=== PATIENT | male | born 1945 | race Caucasian/White ===

== ENCOUNTER 2016-09-23 11:43 | Observation (INO) ==
--- NOTE | 2016-09-23 11:55 | Emergency Department Note ---
Disposition Clinical Impression: Influenza, Dyspnea Disposition: Admitted As Inpatient Condition: Good General Adult HPI - General Chief complaint: ED Upper Respiratory Infection Stated complaint: Fever Cough Time Seen by Provider: 09/23/16 11:51 Source: patient, family Limitations: no limitations - History of Present Illness Pain Scale: 0 - Related Data Home Medications Medication Instructions Recorded Confirmed Docusate [Colace] 200 mg PO BID 06/09/15 09/23/16 Folic Acid 1 mg PO DAILY #0 06/09/15 09/23/16 Furosemide [Lasix] 40 mg PO QAM 06/09/15 09/23/16 Hydrophilic Ointment [Aquabase] 1 appl TP DAILY #0 06/09/15 09/23/16 Insulin ASPART [Novolog Flexpen] 1 - 4 unit SQ ACHS #0 06/09/15 09/23/16 Insulin Glargine [Lantus] 24 units SQ HS 06/09/15 09/23/16 LevETIRAcetam [Keppra] 1,500 mg PO BID #0 06/09/15 09/23/16 Levothyroxine [Synthroid] 200 mcg PO DAILY #0 06/09/15 09/23/16 Memantine HCl 10 mg PO BID #0 06/09/15 09/23/16 Tamsulosin [Flomax] 0.4 mg PO DAILY 06/09/15 09/23/16 Atorvastatin [Lipitor] 40 mg PO HS 03/27/16 09/23/16 Calcium Carbonate/Vitamin D3 1 each PO DAILY 03/27/16 09/23/16 [Calcium 500 + Vit D 200 Caplet] Carrasyn Gel 1 appl TP DAILY PRN 03/27/16 09/23/16 Cholecalciferol (D-3) [Vitamin D] 1,000 unit PO DAILY 03/27/16 09/23/16 Cyanocobalamin (Vitamin B-12) 1,000 mcg PO DAILY 03/27/16 09/23/16 [Vitamin B12] Furosemide [Lasix] 20 mg PO QPM 03/27/16 09/23/16 Miconazole 2% ointment [Aloe [place] 1 appl TP BID 03/27/16 09/23/16 Antifungal Ointment] Polyethylene Glycol 3350 [MiraLAX] 17 gm PO DAILY 03/27/16 09/23/16 Potassium Chloride [K-Tab ER] 10 meq PO BID 03/27/16 09/23/16 Salicylic Acid/Sulfur [Sebex 1 appl TP AD 03/27/16 09/23/16 Shampoo] Trospium Chloride 20 mg PO DAILY 03/27/16 09/23/16 Phenytoin Oral Susp [Dilantin Susp] 225 mg PO BID 03/28/16 09/23/16 Aspirin [Lo-Dose Aspirin EC] 81 mg PO DAILY 09/23/16 09/23/16 Allergies Allergy/AdvReac Type Severity Reaction Status Date / Time Warfarin [From Coumadin] AdvReac See Verified 09/23/16 14:32 Comments Past Medical History - Past Medical History Medical history: Reports: arthritis, cancer, cardiomyopathy, DVT, dementia, diabetes, seizures, thyroid disease, other Surgical history: Reports: thyroidectomy, other (craniotomy*2) Psychiatric history: Reports: no psych history - Social History Smoking Status: Former smoker Smokeless Tobacco Status: No Alcohol use: Reports: none Drug use: Reports: none Physical Exam - General Limitations: no limitations General appearance: alert, in no apparent distress Course Vital Signs Temperature 98 F 09/23/16 11:45 Pulse Rate 94 09/23/16 11:45 Respiratory Rate 16 09/23/16 11:45 Blood Pressure 122/74 09/23/16 11:45 O2 Sat by Pulse Oximetry 94 L 09/23/16 11:45 Temperature 97.6 F 09/23/16 19:17 Pulse Rate 75 09/23/16 19:17 Respiratory Rate 15 09/23/16 19:17 Blood Pressure 114/66 09/23/16 19:17 O2 Sat by Pulse Oximetry 95 09/23/16 19:17 Oxygen Delivery Oxygen Delivery Nasal Cannula Medical Decision Making - Lab Data Result diagrams: 09/23/16 12:59 09/23/16 12:59 Lab Results 09/23/16 09/23/16 Range/Units 12:59 12:59 WBC 2.8 L (4.3-11.1) K/mcL RBC 4.04 L (4.19-5.50) M/mcL Hgb 13.7 (12.9-16.9) g/dL Hct 40.5 (37.5-50.1) % MCV 100.2 H (83.0-100.0) fL MCH 33.9 H (28.0-33.3) pg MCHC 33.8 (31.6-35.5) g/dL RDW 11.9 (11.5-14.5) % Plt Count 96 L (140-400) K/mcL MPV 9.5 (9.4-12.4) fL Immature Gran % 0.4 (0-4) % Seg Neutrophils % 55.7 % Lymphocytes % 22.7 % Monocytes % 16.5 % Eosinophils % 4.0 % Basophils % 0.7 % Neutrophils # 1.6 (1.6-8.9) K/mcL Lymphocytes # 0.6 (0.6-4.6) K/mcL Monocytes # 0.5 (0.0-1.3) K/mcL Eosinophils # 0.1 (0.0-0.6) K/mcL Basophils # 0.0 (0.0-0.2) K/mcL Platelet Estimate Slight Decrease L (Normal) Immature Plt Fraction 2.5 (1.1-6.1) % Sodium 135 L (136-145) mEq/L Potassium 4.7 H (3.5-4.5) mEq/L Chloride 104 (98-109) mEq/L Carbon Dioxide 25 (19-29) mEq/L BUN 16 (8-26) mg/dL Creatinine 0.89 (0.72-1.25) mg/dL Est GFR ( Amer) > 60 (> 60) Est GFR (Non-Af Amer) > 60 (> 60) BUN/Creatinine Ratio 18 (6-26) Glucose 200 H (70-99) mg/dL Calculated Osmolality 287 (280-300) Calcium 8.4 L (8.6-10.8) mg/dL Attestation Statement - Attestation Attestation: I examined this patient and my medical decision-making was reviewed with the MIXOLOGIST/PA/Advanced Practice Nurse/Resident Physician. I agree with the documented findings, disposition and treatment plan as described except to the extent set forth below. Qeki-da-jgie time provided in conjunction with the resident physician Dr. Quezada The patient presents with a nonproductive cough and fevers. This occurred after he was exposed to influenza, pneumonia, bronchitis. The patient required assistance transferring from the wheelchair to the bed. He has a remote history of traumatic brain injury. Other history obtained from spouse at bedside
--- NOTE | 2016-09-23 12:23 | Emergency Department Note ---
Disposition Clinical Impression: Influenza Dyspnea Qualifiers: Dyspnea type: dyspnea on exertion Qualified Code(s): R06.09 - Other forms of dyspnea Disposition: Admitted As Inpatient Condition: Good Referrals: NO,PCP [Primary Care Provider] - Forms: ED Satisfaction Letter General Adult HPI - General Chief complaint: ED Upper Respiratory Infection Stated complaint: Fever Cough Time Seen by Provider: 09/23/16 11:51 Source: patient, family Limitations: no limitations Nursing Notes Reviewed: Yes Vital Signs Reviewed: Yes - History of Present Illness HPI Narrative: Patient here for evaluation of fever and cough. Approximately 3 weeks ago he was placed on doxycycline and cough medicine which the has restarted him on. Symptoms started on Saturday with fever and cough that has been progressively worse in nature. has been diagnosed with bronchitis and their 13-year-old granddaughter has also been diagnosed with influenza. Patient states that he has had at home temperature of 102 with cough that is nonproductive in nature. Patient states headaches but no body aches. would like him checked for dehydration. Pain Scale: 0 - Related Data Home Medications Medication Instructions Recorded Confirmed Carbidopa/Levodopa 25/100 [Sinemet 2 each PO TID #0 06/09/15 03/27/16 25/100] Docusate [Colace] 200 mg PO BID 06/09/15 03/27/16 Folic Acid 1 mg PO DAILY #0 06/09/15 03/27/16 Furosemide [Lasix] 40 mg PO QAM 06/09/15 03/27/16 Hydrophilic Ointment [Aquabase] 1 appl TP DAILY #0 06/09/15 03/27/16 Insulin ASPART [Novolog Flexpen] 1 - 4 unit SQ ACHS #0 06/09/15 03/27/16 Insulin Glargine [Lantus] 24 units SQ HS 06/09/15 03/27/16 LevETIRAcetam [Keppra] 1,500 mg PO BID #0 06/09/15 03/27/16 Levothyroxine [Synthroid] 75 mcg PO COLON #0 06/09/15 03/27/16 Levothyroxine [Synthroid] 100 mcg PO MOTUWETHFR #0 06/09/15 03/27/16 Levothyroxine [Synthroid] 150 mcg PO SA #0 06/09/15 03/27/16 Memantine HCl 10 mg PO BID #0 06/09/15 03/27/16 Tamsulosin [Flomax] 0.4 mg PO DAILY 06/09/15 03/27/16 Atorvastatin [Lipitor] 40 mg PO HS 03/27/16 03/27/16 Calcium Carbonate/Vitamin D3 1 each PO DAILY 03/27/16 03/27/16 [Calcium 500 + Vit D 200 Caplet] Carrasyn Gel 1 appl TP DAILY 03/27/16 03/27/16 Cholecalciferol (D-3) [Vitamin D] 1,000 unit PO DAILY 03/27/16 03/27/16 Cyanocobalamin (Vitamin B-12) 1,000 mcg PO DAILY 03/27/16 03/27/16 [Vitamin B12] Furosemide [Lasix] 20 mg PO QPM 03/27/16 03/27/16 Miconazole 2% ointment [Aloe [place] 1 appl TP BID 03/27/16 03/27/16 Antifungal Ointment] Polyethylene Glycol 3350 [MiraLAX] 17 gm PO DAILY 03/27/16 03/27/16 Potassium Chloride [K-Tab ER] 10 meq PO BID 03/27/16 03/27/16 Salicylic Acid/Sulfur [Sebex 1 appl TP AD 03/27/16 03/27/16 Shampoo] Trospium Chloride 20 mg PO DAILY 03/27/16 03/27/16 Phenytoin Oral Susp [Dilantin Susp] 250 mg PO BID 03/28/16 03/28/16 Allergies Allergy/AdvReac Type Severity Reaction Status Date / Time Warfarin [From Coumadin] AdvReac See Verified 03/27/16 14:43 Comments All systems ED: reviewed and negative except as stated. Constitutional: Reports: fever, chills, weakness Respiratory: Reports: cough, dyspnea Neurological: Reports: headache Endocrine: Reports: fatigue Past Medical History - Past Medical History Medical history: Reports: arthritis, cancer, cardiomyopathy, DVT, dementia, diabetes, seizures, thyroid disease, other Surgical history: Reports: thyroidectomy, other (craniotomy*2) Psychiatric history: Reports: no psych history - Social History Smoking Status: Former smoker Smokeless Tobacco Status: No Alcohol use: Reports: none Drug use: Reports: none Physical Exam - General Limitations: no limitations General appearance: alert, in no apparent distress - Head Head exam: atraumatic, normocephalic - Eye Eye exam: Present: normal appearance - ENT ENT exam: normal exam, normal oropharynx, mucous membranes moist - Neck Neck exam: Present: normal inspection - Chest Chest inspection: Present: normal inspection, symmetric chest wall rise. Absent : tenderness - Respiratory Respiratory exam: Present: wheezes. Absent: respiratory distress - Cardiovascular Cardiovascular exam: Present: regular rate, normal rhythm - Abdominal Exam Abdominal exam: Present: soft, Non-Tender - Extremities Exam Extremities exam: Present: normal inspection. Absent: tenderness, pedal edema - Neurological Exam Neurological exam: Present: alert - Psychiatric Psychiatric exam: Present: normal affect, normal mood - Skin Skin exam: Present: warm, dry Course - Reevaluation(s) Reevaluation #1: Discussed with patient and . Patient has some underlying COPD that is treated with intermittent albuterol use at home. Patient does not have home oxygen. Patient is fragile with his history of TBI and other past medical history. Due to the patient's improvement with albuterol but still requiring 2 L of oxygen the patient will need to be admitted to the hospital for further evaluation and treatment. - Consultations Consultation #1: Discussed with Dr. Blum. Patient accepted for admission. We will give steroids in addition to albuterol treatments and Tamiflu. Vital Signs Temperature 98 F 09/23/16 11:45 Pulse Rate 94 09/23/16 11:45 Respiratory Rate 16 09/23/16 11:45 Blood Pressure 122/74 09/23/16 11:45 O2 Sat by Pulse Oximetry 94 L 09/23/16 11:45 Temperature 98 F 09/23/16 11:45 Pulse Rate 88 09/23/16 11:57 Respiratory Rate 16 09/23/16 11:45 Blood Pressure 123/88 09/23/16 11:57 O2 Sat by Pulse Oximetry 92 L 09/23/16 12:43 Oxygen Delivery Oxygen Delivery Room Air Medical Decision Making - Lab Data Result diagrams: 09/23/16 12:59 09/23/16 12:59 Lab Results 09/23/16 09/23/16 Range/Units 12:59 12:59 WBC 2.8 L (4.3-11.1) K/mcL RBC 4.04 L (4.19-5.50) M/mcL Hgb 13.7 (12.9-16.9) g/dL Hct 40.5 (37.5-50.1) % MCV 100.2 H (83.0-100.0) fL MCH 33.9 H (28.0-33.3) pg MCHC 33.8 (31.6-35.5) g/dL RDW 11.9 (11.5-14.5) % Plt Count 96 L (140-400) K/mcL MPV 9.5 (9.4-12.4) fL Immature Gran % 0.4 (0-4) % Seg Neutrophils % 55.7 % Lymphocytes % 22.7 % Monocytes % 16.5 % Eosinophils % 4.0 % Basophils % 0.7 % Neutrophils # 1.6 (1.6-8.9) K/mcL Lymphocytes # 0.6 (0.6-4.6) K/mcL Monocytes # 0.5 (0.0-1.3) K/mcL Eosinophils # 0.1 (0.0-0.6) K/mcL Basophils # 0.0 (0.0-0.2) K/mcL Platelet Estimate Slight Decrease L (Normal) Immature Plt Fraction 2.5 (1.1-6.1) % Sodium 135 L (136-145) mEq/L Potassium 4.7 H (3.5-4.5) mEq/L Chloride 104 (98-109) mEq/L Carbon Dioxide 25 (19-29) mEq/L BUN 16 (8-26) mg/dL Creatinine 0.89 (0.72-1.25) mg/dL Est GFR ( Amer) > 60 (> 60) Est GFR (Non-Af Amer) > 60 (> 60) BUN/Creatinine Ratio 18 (6-26) Glucose 200 H (70-99) mg/dL Calculated Osmolality 287 (280-300) Calcium 8.4 L (8.6-10.8) mg/dL
[2016-09-23] MEDS ORDERED: Ipratropium/Albuterol Neb 3 ML IH ONE (12:24)
[2016-09-23 13:08] LABS: Basophils % 0.7 %; Hemoglobin 13.7 g/dL (12.9-16.9); Immature Granulocytes % 0.4 % (0-4); Mean Platelet Volume 9.5 fL (9.4-12.4); Red Cell Distribution Width 11.9 % (11.5-14.5)
[2016-09-23 13:10] LABS: Eosinophils # 0.1 K/mcL (0.0-0.6); Hematocrit 40.5 % (37.5-50.1); Immature Platelets 2.5 % (1.1-6.1); Lymphocytes # 0.6 K/mcL (0.6-4.6); Lymphocytes % 22.7 %; Mean Corpuscular HGB Conc 33.8 g/dL (31.6-35.5); Mean Corpuscular Hemoglobin 33.9 pg (28.0-33.3); Mean Corpuscular Volume 100.2 fL (83.0-100.0); Monocytes # 0.5 K/mcL (0.0-1.3); Monocytes % 16.5 %; Neutrophils # 1.6 K/mcL (1.6-8.9); Platelet Count 96 K/mcL (140-400); Red Blood Count 4.04 M/mcL (4.19-5.50); Segmented Neutrophils % 55.7 %
[2016-09-23 13:20] LABS: BUN/Creatinine Ratio 18 (6-26); Blood Urea Nitrogen 16 mg/dL (8-26); Calcium 8.4 mg/dL (8.6-10.8); Carbon Dioxide 25 mEq/L (19-29); Chloride 104 mEq/L (98-109); Glucose 200 mg/dL (70-99); Osmolality,Calculated 287 (280-300); Potassium 4.7 mEq/L (3.5-4.5); Sodium 135 mEq/L (136-145); eGFR For African Americans > 60 (> 60); eGFR For Non-African Americans > 60 (> 60)
[2016-09-23 13:40] LABS: Platelet Estimate Slight Decrease (Normal)
[2016-09-23] MEDS ORDERED: methylPREDNISolone 125 MG/2 ML VIAL IV ONE (13:48)
[2016-09-23] MEDS ORDERED: Acetaminophen 325 MG TABLET PO PRN (14:48)
[2016-09-23] MEDS ORDERED: Naloxone 0.4 MG/ML INJ IVP PRN (14:48)
[2016-09-23] MEDS ORDERED: Albuterol 2.5 MG/3 ML NEBULIZER IH PRN (14:55)
[2016-09-23] MEDS ORDERED: *HR* Dextrose 50 % in Water (Syg) 50 ML SYRINGE IVP PRN (15:15)
[2016-09-23] MEDS ORDERED: Dextrose Gel 15 GM PO PRN ×2 (15:15)
[2016-09-23] MEDS ORDERED: D5% in Water 1,000 ML IV PRN (15:15)
--- NOTE | 2016-09-23 15:17 | Internal Med History&Physical ---
<Dawn Sepulveda - Last Filed: 09/24/16 00:35> Date of Encounter: 09/23/16 Time of Encounter: 14:30 Assessment and Plan (1) Influenza Status: Acute Patient had exposure to influenza earlier in the week. He has been experiencing cough and fevers denies any body aches or headaches. Nasal swab was positive for influenza A patient was started on Tamiflu (2) Seizure Status: Acute She has past history of seizures related to TBI. Presently no seizure activity noted. Place patient on seizure precautions 2 continue with Keppra and Dilantin (3) DVT (deep venous thrombosis) Status: Acute Patient has past history of DVT he is not anticoagulated due to history of subdural hematoma. He does have a filter and is on aspirin. We will hold aspirin for now due to low platelets Qualifiers: DVT location: lower extremity Affected thrombotic vein of extremity: unspecified lower extremity proximal vein Laterality: left Chronicity: acute Qualified Code(s): I82.4Y2 - Acute embolism and thrombosis of unspecified deep veins of left proximal lower extremity (4) Dementia Status: Chronic She has history of dementia. He is impulsive at times has had 2 episodes of falls with subdural hematoma. We will place patient on fall precautions patient does have a sitter. Continue with home medications Qualifiers: Dementia type: Alzheimer's disease Alzheimer's disease onset: late-onset Dementia behavioral disturbance: without behavioral disturbance Qualified Code (s): G30.1 - Alzheimer's disease with late onset; F02.80 - Dementia in other diseases classified elsewhere without behavioral disturbance (5) Thrombocytopenia Status: Acute 1 his platelets are 96 which are down from previous. Patient is on aspirin we will hold aspirin for now recheck in a.m. Internal Medicine - H&P: HPI Chief complaint: Cough and fevers Admitted From: Emergency Dept Plans for Post Hospital Care: Home History of present illness: Mr. Ness is a 71 year old male past medical history of subdural hematoma with craniotomy 2 DVT COPD dementia diabetes seizures thyroid cancer. Information obtained from patient's who is at bedside due to patient has TBI. According the the patient was exposed to influenza pneumonia bronchitis. Once the patient began to experience fever and cough with temperature proxy 102. As a weeks continue the patient's symptoms progressively worsen. The patient was given breathing treatments without any improvement Approximately 3 weeks ago the patient was treated with doxycycline and cough medicine the gave the patient a few doses of these medications however his symptoms did not improve. The patient denied any headaches or body aches or any productive sputum. Patient was brought in for evaluation by . According to ER records patient's WBC 2.8 platelets were 96 glucose was 200. Chest x-ray with no acute abnormalities patient smoked for influenza which was positive for influenza A. He spent many for further workup evaluation. Upon assessment patient does not appear to be any respiratory distress at this time oxygen saturation is 96% on room air he denies any chest pain or shortness of breath he is hemodynamically stable at this time. I reviewed this case with who agrees with plan Past Med Surg Social Fam HX - Past Medical History Medical history: arthritis, cancer, cardiomyopathy, DVT, dementia, diabetes, seizures, thyroid disease, other Psychiatric history: no psych history - Past Surgical History Surgical History: thyroidectomy, other (craniotomy*2) - Social History Smoking Status: Former smoker Smokeless Tobacco Status: No Alcohol use: none Drug use: none - Family History Father Living Status: Hx Family Cardiac Disorders: No Hx Family Cancer: No Hx Family GI Disorders: Yes (father from bleeding ulcers) Hx Family Endocrine Disorder: No Hx Family Neuromuscular Disorders: No Hx Family Neurologic Disorders: No Hx Family HEENT Disorders: No Hx Family Autoimmune Disorders: No Internal Medicine - H&P: Meds Docusate [Colace] 200 mg PO BID 06/09/15 [History] Folic Acid 1 mg PO DAILY #0 06/09/15 [History] Furosemide [Lasix] 40 mg PO QAM 06/09/15 [History] Hydrophilic Ointment [Aquabase] 1 appl TP DAILY #0 06/09/15 [History] Insulin ASPART [Novolog Flexpen] 1 - 4 unit SQ ACHS #0 06/09/15 [History] Insulin Glargine [Lantus] 24 units SQ HS 06/09/15 [History] LevETIRAcetam [Keppra] 1,500 mg PO BID #0 06/09/15 [History] Levothyroxine [Synthroid] 200 mcg PO DAILY #0 06/09/15 [History] Memantine HCl 10 mg PO BID #0 06/09/15 [History] Tamsulosin [Flomax] 0.4 mg PO DAILY 06/09/15 [History] Atorvastatin [Lipitor] 40 mg PO HS 03/27/16 [History] Calcium Carbonate/Vitamin D3 [Calcium 500-Vit D3 200 Caplet] 1 each PO DAILY [History] Carrasyn Gel 1 appl TP DAILY PRN 03/27/16 [History] Cholecalciferol (D-3) [Vitamin D] 1,000 unit PO DAILY 03/27/16 [History] Cyanocobalamin (Vitamin B-12) [Vitamin B12] 1,000 mcg PO DAILY 03/27/16 [History ] Furosemide [Lasix] 20 mg PO QPM 03/27/16 [History] Miconazole 2% ointment [Aloe [place] Antifungal Ointment] 1 appl TP BID 03/27/16 [ History] Polyethylene Glycol 3350 [MiraLAX] 17 gm PO DAILY 03/27/16 [History] Potassium Chloride [K-Tab ER] 10 meq PO BID 03/27/16 [History] Salicylic Acid/Sulfur [Sebex Shampoo] 1 appl TP AD 03/27/16 [History] Trospium Chloride 20 mg PO DAILY 03/27/16 [History] Phenytoin Oral Susp [Dilantin Susp] 225 mg PO BID 03/28/16 [History] Aspirin [Lo-Dose Aspirin EC] 81 mg PO DAILY 09/23/16 [History] Oseltamivir [Tamiflu] 75 mg PO BID #7 capsule 09/25/16 [Rx] Allergies Warfarin [From Coumadin] Adverse Reaction (Verified 09/23/16 14:32) See Comments states that patient cannot take this medication because it causes "brain bleeds" ROS unobtainable: due to mental status All Systems PM: A 10-system review of systems was performed and is negative for pertinent findings except as documented above in the HPI. - Constitutional Vitals: Temp Pulse Resp BP Pulse Ox 98 F 89 15 115/68 95 09/23/16 11:45 09/23/16 14:08 09/23/16 14:32 09/23/16 14:32 09/23/16 14:08 General appearance: Present: A&O X 1, pleasant - Head Head exam: Present: atraumatic, normocephalic - Respiratory Respiratory exam: Present: CTAB. Absent: accessory muscle use, rales, rhonchi, wheezes - Cardiovascular Cardiovascular exam: Present: RRR, +S1, +S2. Absent: diastolic murmur, gallop, rubs, systolic murmur - GI/Abdominal GI/Abdominal exam: Present: normal bowel sounds, soft, no peritoneal signs. Absent: distended, tenderness - Extremities Exam Extremities exam: Present: pedal edema, warm, radial pulses palpable and symetrical. Absent: calf tenderness, cyanotic - Neurological Exam Neurological exam: Present: alert. Absent: pronater drift, facial droop, speech deficit - Skin Skin exam: Present: dry, intact Internal Med - H&P Results - Labs CBC & Chem 7: 09/23/16 12:59 09/23/16 12:59 - Diagnostic Studies Chest x-ray Additional comments: Chest X-Ray 09/23/16 12:04 IMPRESSION: No acute abnormality. D/ / Joseph Lopez MD / Joseph Lopez MD Interpreting Provider: Joseph Lopez MD - VTE Reasons for not Prescribing Prophylaxis: Treatment not Indicated - Low risk for VTE <Jameson Blum - Last Filed: 09/25/16 17:44> Internal Medicine - H&P: HPI History of present illness: Mr. Ness is a 71 year old male All Systems PM: A 10-system review of systems was performed and is negative for pertinent findings except as documented above in the HPI. - Constitutional Vitals: Temp Pulse Resp BP Pulse Ox 97.7 F 73 18 107/67 94 L 09/25/16 07:38 09/25/16 07:38 09/25/16 10:27 09/25/16 07:38 09/25/16 10:27 Internal Med - H&P Results - Labs CBC & Chem 7: 09/24/16 04:28 09/24/16 04:28 - Attending Attestation I examined this patient and my medical decision-making was reviewed with the Advanced Practice Nurse. I agree with the documented findings, disposition and treatment plan as described except to the extent set forth below. The patient is being admitted for management of influenza. He currently is in no acute distress speaking full sentences, pleasantly confused. Heart is regular S1-S2. Lungs are clear. We will treat him with Tamiflu. Oxygen by nasal cannula. PT OT.
[2016-09-23] MEDS: Ipratropium/Albuterol Neb 3 ML IH SCH ×3 (16:16→23:23)
[2016-09-23] MEDS: Insulin LISPRO 300 UNITS/3 ML VIAL SQ SCH ×2 (18:43→22:14)
[2016-09-23] MEDS ORDERED: Miconazole 2% ointment 114 GM TUBE TP SCH (21:00)
[2016-09-23] MEDS: Phenytoin Oral Susp 100 MG/4 ML UDC PO SCH (22:10)
[2016-09-23] MEDS: Insulin DETEMIR 100 UNIT/ML X5UNITS SQ SCH (22:11)
[2016-09-23] MEDS: levETIRAcetam 250 MG TABLET PO SCH (22:11)
[2016-09-24] MEDS: Ipratropium/Albuterol Neb 3 ML IH SCH ×4 (03:48→23:48)
[2016-09-24 04:38] LABS: Basophils % 0.4 %; Eosinophils # 0.1 K/mcL (0.0-0.6); Eosinophils % 2.1 %; Hematocrit 38.2 % (37.5-50.1); Hemoglobin 13.1 g/dL (12.9-16.9); Lymphocytes # 0.9 K/mcL (0.6-4.6); Lymphocytes % 39.1 %; Mean Corpuscular HGB Conc 34.3 g/dL (31.6-35.5); Mean Corpuscular Hemoglobin 33.9 pg (28.0-33.3); Mean Corpuscular Volume 98.7 fL (83.0-100.0); Mean Platelet Volume 9.3 fL (9.4-12.4); Monocytes # 0.4 K/mcL (0.0-1.3); Monocytes % 15.9 %; Platelet Count 106 K/mcL (140-400); Red Blood Count 3.87 M/mcL (4.19-5.50); Red Cell Distribution Width 11.8 % (11.5-14.5); Segmented Neutrophils % 42.5 %
[2016-09-24 04:57] LABS: BUN/Creatinine Ratio 18 (6-26); Blood Urea Nitrogen 14 mg/dL (8-26); Carbon Dioxide 25 mEq/L (19-29); Chloride 106 mEq/L (98-109); Glucose 120 mg/dL (70-99); Osmolality,Calculated 286 (280-300); Potassium 4.2 mEq/L (3.5-4.5); Sodium 137 mEq/L (136-145); eGFR For African Americans > 60 (> 60); eGFR For Non-African Americans > 60 (> 60)
[2016-09-24] MEDS: Insulin LISPRO 300 UNITS/3 ML VIAL SQ SCH ×4 (08:03→20:27)
[2016-09-24] MEDS: Folic Acid 1 MG TABLET PO SCH (08:14)
[2016-09-24] MEDS: Cholecalciferol (D-3) 1,000 UNIT TABLET PO SCH (08:14)
[2016-09-24] MEDS: levETIRAcetam 250 MG TABLET PO SCH ×2 (08:15→20:17)
[2016-09-24] MEDS: Cyanocobalamin (B-12) 1,000 MCG TABLET PO SCH (08:16)
[2016-09-24] MEDS: Phenytoin Oral Susp 100 MG/4 ML UDC PO SCH ×2 (08:16→20:16)
[2016-09-24] MEDS: CALCIUM VIT D3 PO SCH (08:17)
[2016-09-24] MEDS ORDERED: Aspirin Enteric Coated 81 MG Tablet PO SCH (09:00)
[2016-09-24] MEDS ORDERED: Furosemide 20 MG TABLET PO SCH (09:00)
--- NOTE | 2016-09-24 16:22 | Internal Med Progress Note ---
Date of Encounter: 09/24/16 Time of Encounter: 16:20 - Assessment and plan (1) Influenza Current Visit: Yes Status: Acute Assessment and plan: positive for influenza , CXR shows no pnuemonia started on tamiflu, reports feeling better. supportive tx for now, possibel dc tomm. (2) Seizure Current Visit: Yes Status: Acute Assessment and plan: will continue home meds no seizure like activity (3) Subdural hematoma, post-traumatic Current Visit: No Status: Chronic Assessment and plan: h.o subdural hematoma with TBI. stable now, Qualifiers: Encounter type: sequela Loss of consciousness presence/duration: without LOC Qualified Code(s): S06.5X0S - Traumatic subdural hemorrhage without loss of consciousness, sequela - Time Spent With Patient 25 - 35 minutes - Subjective Interval history: seen at the bedside, reports taht he feels a lot better today. is upset that he does not have a sitter by the bedisde, as she thinks he needs a sitter and cannot be by himself on the room he has eaten his BF well and has no fever or chest pain. - Constitutional Vitals: Temp Pulse Resp BP Pulse Ox 97.8 F 83 20 90/55 100 09/24/16 15:39 09/24/16 15:39 09/24/16 15:39 09/24/16 15:39 09/24/16 15:39 General appearance: Present: A&O X 3, pleasant, no acute distress Exam: - Head Head exam: Present: atraumatic, normocephalic - Respiratory Respiratory exam: Present: CTAB. Absent: accessory muscle use, rales, rhonchi, wheezes - Cardiovascular Cardiovascular exam: Present: RRR, +S1, +S2. Absent: diastolic murmur, gallop, rubs, systolic murmur - GI/Abdominal GI/Abdominal exam: Present: normal bowel sounds, soft, no peritoneal signs. Absent: distended, tenderness - Extremities Exam Extremities exam: Present: pedal edema, warm, radial pulses palpable and symetrical. Absent: calf tenderness, cyanotic - Neurological Exam Neurological exam: Present: alert. Absent: pronater drift, facial droop, speech deficit - Skin Skin exam: Present: dry, intact Internal Medicine: Result - Labs CBC & Chem 7: 09/24/16 04:28 09/24/16 04:28 Labs: Short CBC 09/24/16 Range/Units 04:28 WBC 2.3 L (4.3-11.1) K/mcL Hgb 13.1 (12.9-16.9) g/dL Hct 38.2 (37.5-50.1) % Plt Count 106 L (140-400) K/mcL Neutrophils # 1.0 L (1.6-8.9) K/mcL BMP 09/24/16 04:28 Sodium 137 Potassium 4.2 Chloride 106 Carbon Dioxide 25 BUN 14 Creatinine 0.77 Glucose 120 H Calcium 8.0 L - VTE Reasons for not Prescribing Prophylaxis: Treatment not Indicated - Low risk for VTE Consult Discharge Plan - Plan Referrals: NO,PCP [Primary Care Provider] -
[2016-09-24] MEDS: Insulin DETEMIR 100 UNIT/ML X5UNITS SQ SCH (20:27)
[2016-09-25] MEDS: Ipratropium/Albuterol Neb 3 ML IH SCH ×2 (04:27→10:27)
[2016-09-25 07:40] VITALS: BP 107/67
[2016-09-25] MEDS: Insulin LISPRO 300 UNITS/3 ML VIAL SQ SCH (08:15)
[2016-09-25] MEDS: Folic Acid 1 MG TABLET PO SCH (10:27)
[2016-09-25] MEDS: Cholecalciferol (D-3) 1,000 UNIT TABLET PO SCH (10:27)
[2016-09-25] MEDS: Cyanocobalamin (B-12) 1,000 MCG TABLET PO SCH (10:27)
[2016-09-25] MEDS: CALCIUM VIT D3 PO SCH (10:28)
[2016-09-25] MEDS: levETIRAcetam 250 MG TABLET PO SCH (10:28)
--- NOTE | 2016-09-25 10:34 | Discharge Summary ---
Date of Encounter: 09/25/16 Time of Encounter: 10:32 - Discharge Diagnosis (1) Influenza Priority: Primary Status: Acute (2) Seizure Priority: Secondary Status: Acute (3) Subdural hematoma, post-traumatic Priority: Secondary Status: Chronic Qualifiers: Encounter type: sequela Loss of consciousness presence/duration: without LOC Qualified Code(s): S06.5X0S - Traumatic subdural hemorrhage without loss of consciousness, sequela - Discharge Medications Prescriptions: Oseltamivir [Tamiflu] 75 mg PO BID #7 capsule Home Medications: Docusate [Colace] 200 mg PO BID 06/09/15 [History] Folic Acid 1 mg PO DAILY #0 06/09/15 [History] Furosemide [Lasix] 40 mg PO QAM 06/09/15 [History] Hydrophilic Ointment [Aquabase] 1 appl TP DAILY #0 06/09/15 [History] Insulin ASPART [Novolog Flexpen] 1 - 4 unit SQ ACHS #0 06/09/15 [History] Insulin Glargine [Lantus] 24 units SQ HS 06/09/15 [History] LevETIRAcetam [Keppra] 1,500 mg PO BID #0 06/09/15 [History] Levothyroxine [Synthroid] 200 mcg PO DAILY #0 06/09/15 [History] Memantine HCl 10 mg PO BID #0 06/09/15 [History] Tamsulosin [Flomax] 0.4 mg PO DAILY 06/09/15 [History] Atorvastatin [Lipitor] 40 mg PO HS 03/27/16 [History] Calcium Carbonate/Vitamin D3 [Calcium 500-Vit D3 200 Caplet] 1 each PO DAILY [History] Carrasyn Gel 1 appl TP DAILY PRN 03/27/16 [History] Cholecalciferol (D-3) [Vitamin D] 1,000 unit PO DAILY 03/27/16 [History] Cyanocobalamin (Vitamin B-12) [Vitamin B12] 1,000 mcg PO DAILY 03/27/16 [History ] Furosemide [Lasix] 20 mg PO QPM 03/27/16 [History] Miconazole 2% ointment [Aloe [place] Antifungal Ointment] 1 appl TP BID 03/27/16 [ History] Polyethylene Glycol 3350 [MiraLAX] 17 gm PO DAILY 03/27/16 [History] Potassium Chloride [K-Tab ER] 10 meq PO BID 03/27/16 [History] Salicylic Acid/Sulfur [Sebex Shampoo] 1 appl TP AD 03/27/16 [History] Trospium Chloride 20 mg PO DAILY 03/27/16 [History] Phenytoin Oral Susp [Dilantin Susp] 225 mg PO BID 03/28/16 [History] Aspirin [Lo-Dose Aspirin EC] 81 mg PO DAILY 09/23/16 [History] Oseltamivir [Tamiflu] 75 mg PO BID #7 capsule 09/25/16 [Rx] Allergies/Adverse Reactions: Allergies Warfarin [From Coumadin] Adverse Reaction (Verified 09/23/16 14:32) See Comments states that patient cannot take this medication because it causes "brain bleeds" Date of admission: 09/23/16 13:52 Primary care physician: PCP NO Consults: 09/23/16 15:47 Consult to Easement Worker [CONS] Routine Reason for SW Consult: possible need for home 02 09/24/16 11:38 Consult to Occupational Therapy [CONS] Routine Comment: Evaluate, develop and implement POC Consult to Physical Therapy [CONS] Routine Comment: Evaluate, develop and implement POC Discharging clinician: Marlo Valle Anticipated date of discharge: 09/25/16 - Patient Status Disposition: Home, Self-Care Condition: Fair Functional capacity at discharge: uses cane/walker Overall status at discharge: patient is back to baseline - Discharge Instructions Instructions: Influenza Virus Vaccine (Injection), Oseltamivir (By mouth), Chronic Obstructive Pulmonary Disease (DC) Follow Up With: NO,PCP [Non-Partnered Physician] - ([facility] ) - Diet and Activity Activity: as per physical therapy Diet: advance to your usual diet Interval History: Mr. Ness is a 71 year old male past medical history of subdural hematoma with craniotomy 2 DVT COPD dementia diabetes seizures thyroid cancer. Information obtained from patient's who is at bedside due to patient has TBI. According the the patient was exposed to influenza pneumonia bronchitis. Once the patient began to experience fever and cough with temperature proxy 102. As a weeks continue the patient's symptoms progressively worsen. The patient was given breathing treatments without any improvement Approximately 3 weeks ago the patient was treated with doxycycline and cough medicine the gave the patient a few doses of these medications however his symptoms did not improve. The patient denied any headaches or body aches or any productive sputum. Patient was brought in for evaluation by . According to ER records patient's WBC 2.8 platelets were 96 glucose was 200. Chest x-ray with no acute abnormalities patient was checked for influenza which was positive for influenza A. Upon assessment patient does not appear to be any respiratory distress , oxygen saturation is 96% on room air he denies any chest pain or shortness of breath he is hemodynamically stable . he was started on tamiflu with which he improved clinically. he is being dc in stable condition. Hospital course: Mr. Ness is a 71 year old male Time spent discussing smoking cessation with patient: more than 10 minutes - Time Spent with Patient Total time spent providing and/or coordinating discharge services: Greater than 30 minutes - Constitutional Vitals: Temp Pulse Resp BP Pulse Ox 97.7 F 73 14 107/67 94 L 09/25/16 07:38 09/25/16 07:38 09/25/16 07:38 09/25/16 07:38 09/25/16 07:38 General appearance: Present: A&O X 3, pleasant, no acute distress Exam: - Head Head exam: Present: atraumatic, normocephalic - Respiratory Respiratory exam: Present: CTAB. Absent: accessory muscle use, rales, rhonchi, wheezes - Cardiovascular Cardiovascular exam: Present: RRR, +S1, +S2. Absent: diastolic murmur, gallop, rubs, systolic murmur - GI/Abdominal GI/Abdominal exam: Present: normal bowel sounds, soft, no peritoneal signs. Absent: distended, tenderness - Extremities Exam Extremities exam: Present: pedal edema, warm, radial pulses palpable and symetrical. Absent: calf tenderness, cyanotic - Neurological Exam Neurological exam: Present: alert. Absent: pronater drift, facial droop, speech deficit - Skin Skin exam: Present: dry, intact - VTE Reasons for not Prescribing Prophylaxis: Treatment not Indicated - Low risk for VTE
[2016-09-25] MEDS ORDERED: Phenytoin Oral Susp 100 MG/4 ML UDC PO SCH (16:30)
== END 2016-09-25 12:52 | disposition home or self-care (01) ==
LOC: 3BNU 11:43 → EMEROO 11:43 → SUATTDRO 13:52 → 3BNU 14:55
PROVIDERS: ADMIT Internal Medicine; ATTEND Internal Medicine Endocrinology, Diabetes & Metabolism

== ENCOUNTER 2022-01-29 17:02 | Observation (INO) ==
[2022-01-29 21:57] LABS: Basophils % 0.5 %; Eosinophils # 0.2 K/mcL (0.0-0.6); Eosinophils % 2.8 %; Hematocrit 43.4 % (37.5-50.1); Hemoglobin 14.6 g/dL (12.9-16.9); Immature Granulocytes % 0.3 % (0-4); Lymphocytes # 1.8 K/mcL (0.6-4.6); Lymphocytes % 23.7 %; Mean Corpuscular HGB Conc 33.6 g/dL (31.6-35.5); Mean Corpuscular Hemoglobin 33.2 pg (28.0-33.3); Mean Corpuscular Volume 98.6 fL (83.0-100.0); Mean Platelet Volume 9.5 fL (9.4-12.4); Monocytes # 0.7 K/mcL (0.0-1.3); Monocytes % 8.8 %; Neutrophils # 4.9 K/mcL (1.6-8.9); Platelet Count 146 K/mcL (140-400); Red Cell Distribution Width 11.6 % (11.5-14.5); Segmented Neutrophils % 63.9 %; White Blood Count 7.6 K/mcL (4.3-11.1)
[2022-01-29 22:15] LABS: BUN/Creatinine Ratio 15 (6-26); Blood Urea Nitrogen 13 mg/dL (8-23); C-Reactive Protein 32 mg/L (Less than 10); Calcium 9.2 mg/dL (8.6-10.3); Carbon Dioxide 32 mEq/L (23-29); Chloride 101 mEq/L (98-107); Glucose 175 mg/dL (70-105); Osmolality,Calculated 290 (280-300); Potassium 4.3 mEq/L (3.5-5.1); Sodium 138 mEq/L (136-145); eGFR For African Americans > 60 (> 60); eGFR For Non-African Americans > 60 (> 60)
[2022-01-29] MEDS ORDERED: Iopamidol - 370 500 ML MLS IVP ONE (22:18)
[2022-01-29] MEDS ORDERED: Piperacillin/Tazobactam 3.375 GM in 0.9 % Sodium Chloride Mini Bag 100 ML IVPB ONE (22:46)
[2022-01-29] MEDS ORDERED: Naloxone 0.4 MG/ML INJ IVP PRN (23:41)
[2022-01-29] MEDS ORDERED: Ondansetron 4 MG/2 ML VIAL IVP PRN (23:41)
[2022-01-29] MEDS ORDERED: Acetaminophen 325 MG TABLET PO PRN (23:41)
[2022-01-29] MEDS ORDERED: Vancomycin 1,750 MG in 0.9 % Sodium Chloride 250 ML IVPB SCH (23:45)
[2022-01-30] MEDS ORDERED: Vancomycin 2,000 MG/520 ML IV.SOLN IVPB ONE (01:00)
[2022-01-30] MEDS ORDERED: Dextrose Gel 15 GM/37.5 ML TUBE PO PRN ×2 (02:44)
[2022-01-30] MEDS ORDERED: D5% in Water 1,000 ML IVC PRN (02:44)
[2022-01-30] MEDS ORDERED: *HR* Dextrose 50 % in Water (Syg) 50 ML SYRINGE IVP PRN (02:44)
[2022-01-30] MEDS: Piperacillin/Tazobactam 3.375 GM in 0.9 % Sodium Chloride Mini Bag 100 ML IVPB SCH ×2 (06:01→17:16)
[2022-01-30 06:15] LABS: Hemoglobin 13.3 g/dL (12.9-16.9); Mean Corpuscular HGB Conc 34.1 g/dL (31.6-35.5); Mean Corpuscular Hemoglobin 33.5 pg (28.0-33.3); Mean Corpuscular Volume 98.2 fL (83.0-100.0); Mean Platelet Volume 9.6 fL (9.4-12.4); Platelet Count 131 K/mcL (140-400); Red Blood Count 3.97 M/mcL (4.19-5.50); Red Cell Distribution Width 11.6 % (11.5-14.5); White Blood Count 6.1 K/mcL (4.3-11.1)
[2022-01-30 07:19] LABS: BUN/Creatinine Ratio 14 (6-26); Blood Urea Nitrogen 11 mg/dL (8-23); Calcium 8.6 mg/dL (8.6-10.3); Carbon Dioxide 26 mEq/L (23-29); Chloride 104 mEq/L (98-107); Glucose 173 mg/dL (70-105); Osmolality,Calculated 292 (280-300); Potassium 3.8 mEq/L (3.5-5.1); Sodium 139 mEq/L (136-145); eGFR For African Americans > 60 (> 60); eGFR For Non-African Americans > 60 (> 60)
[2022-01-30] MEDS: Insulin LISPRO 300 UNITS/3 ML VIAL SUBQ SCH ×3 (10:12→17:27)
[2022-01-30] MEDS: Carbidopa/Levodopa 25/100 TABLET PO SCH ×2 (14:26→20:31)
[2022-01-30] MEDS ORDERED: HydrOXYzine 100 MG/2 ML VIAL IM ONE (14:28)
[2022-01-30] MEDS: Vancomycin 1,500 MG/265 ML IV.SOLN IVPB SCH (15:06)
[2022-01-30 19:26] LABS: Enterococcus faecalis by PCR Not Detected (Not Detect); Enterococcus faecium by PCR Not Detected (Not Detect); Staphylococcus by PCR DETECTED (Not Detect)
[2022-01-30 19:27] LABS: A.calcoaceticus-baumannii cplx Not Detected (Not Detect); Bacteroides fragilis by PCR Not Detected (Not Detect); Candida albicans by PCR Not Detected (Not Detect); Candida auris by PCR Not Detected (Not Detect); Candida glabrata by PCR Not Detected (Not Detect); Candida krusei by PCR Not Detected (Not Detect); Candida parapsilosis by PCR Not Detected (Not Detect); Candida tropicalis by PCR Not Detected (Not Detect); Crypto. neoformans/gattii PCR Not Detected (Not Detect); Enterobacter cloacae Cmplx PCR Not Detected (Not Detect); Enterobacterales by PCR Not Detected (Not Detect); Escherichia coli by PCR Not Detected (Not Detect); Klebs. pneumoniae group by PCR Not Detected (Not Detect); Klebsiella aerogenes by PCR Not Detected (Not Detect); Klebsiella oxytoca by PCR Not Detected (Not Detect); Proteus by PCR Not Detected (Not Detect); Pseudomonas aeruginosa by PCR Not Detected (Not Detect); Salmonella species by PCR Not Detected (Not Detect); Serratia marcescens by PCR Not Detected (Not Detect); Staph epidermidis by PCR Not Detected (Not Detect); Staph lugdunensis by PCR Not Detected (Not Detect); Staphylococcus aureus by PCR Not Detected (Not Detect); Stenotrophomonas maltophilia Not Detected (Not Detect); Streptococcus agalactiae(B)PCR Not Detected (Not Detect); Streptococcus by PCR Not Detected (Not Detect); Streptococcus pneumoniae PCR Not Detected (Not Detect); Streptococcus pyogenes (A) PCR Not Detected (Not Detect)
[2022-01-30] MEDS: levETIRAcetam 250 MG TABLET PO SCH (20:30)
[2022-01-31] MEDS: Piperacillin/Tazobactam 3.375 GM in 0.9 % Sodium Chloride Mini Bag 100 ML IVPB SCH ×2 (00:45→09:18)
[2022-01-31] MEDS: Vancomycin 1,500 MG/265 ML IV.SOLN IVPB SCH (02:05)
[2022-01-31 02:17] LABS: Basophils % 0.4 %; Immature Granulocytes % 0.4 % (0-4); Red Cell Distribution Width 11.5 % (11.5-14.5)
[2022-01-31 02:20] LABS: Eosinophils # 0.2 K/mcL (0.0-0.6); Eosinophils % 4.2 %; Hematocrit 38.6 % (37.5-50.1); Hemoglobin 13.3 g/dL (12.9-16.9); Lymphocytes # 1.4 K/mcL (0.6-4.6); Mean Corpuscular HGB Conc 34.5 g/dL (31.6-35.5); Mean Corpuscular Hemoglobin 33.8 pg (28.0-33.3); Mean Corpuscular Volume 98.2 fL (83.0-100.0); Mean Platelet Volume 9.4 fL (9.4-12.4); Monocytes # 0.5 K/mcL (0.0-1.3); Neutrophils # 3.3 K/mcL (1.6-8.9); Platelet Count 147 K/mcL (140-400); Red Blood Count 3.93 M/mcL (4.19-5.50); White Blood Count 5.5 K/mcL (4.3-11.1)
[2022-01-31 03:02] LABS: Alanine Aminotransferase < 3 Units/L (7-52); Albumin 3.3 g/dL (3.5-5.7); Albumin/Globulin Ratio 1.2 (1.1-2.2); Alkaline Phosphatase 66 Units/L (34-104); Aspartate Amino Transferase 9 Units/L (13-39); BUN/Creatinine Ratio 13 (6-26); Bilirubin,Total 0.7 mg/dL (0.3-1.0); Blood Urea Nitrogen 11 mg/dL (8-23); Calcium 8.3 mg/dL (8.6-10.3); Carbon Dioxide 26 mEq/L (23-29); Chloride 106 mEq/L (98-107); Globulin 2.7 g/dL (2.4-3.5); Glucose 157 mg/dL (70-105); Osmolality,Calculated 289 (280-300); Sodium 138 mEq/L (136-145); eGFR For African Americans > 60 (> 60); eGFR For Non-African Americans > 60 (> 60)
[2022-01-31] MEDS ORDERED: Cyanocobalamin (B-12) 1,000 MCG TABLET PO SCH (09:00)
[2022-01-31] MEDS ORDERED: Folic Acid 1 MG TABLET PO SCH (09:00)
[2022-01-31] MEDS ORDERED: Cholecalciferol (D-3) 1,000 UNIT (25MCG) TABLET PO SCH (09:00)
[2022-01-31] MEDS: levETIRAcetam 250 MG TABLET PO SCH (09:17)
[2022-01-31] MEDS: Insulin LISPRO 300 UNITS/3 ML VIAL SUBQ SCH ×2 (09:17→12:02)
[2022-01-31] MEDS: Carbidopa/Levodopa 25/100 TABLET PO SCH (09:18)
[2022-01-31 12:01] VITALS: BP 110/66; PULSE 57; TEMP 97.5; O2SAT 94
== END 2022-01-31 15:00 | disposition home health service (06) ==
LOC: EMEROOARM 17:02 → 4WAOSI 17:02 → SUATTDRO 23:36 → 4WAOSI 01-30 01:16
PROVIDERS: ADMIT Internal Medicine; ATTEND Family Medicine